=== PATIENT | female | born 1995 | race Two or more races ===

== ENCOUNTER 2020-07-02 19:45 | Emergency (ER) | payer MEDICAID ==
[~2020-07-02] VITALS: Ht 165.1 cm; Wt 75.0 kg
--- NOTE | 2020-07-02 20:20 | ED.ADGEN ---
General Adult EDM: Chief Complaint: VAGINAL BLEEDING HPI: HPI: Patient is a 24-year-old G1, P0 at 6 weeks gestation who presents to the emergency room complaining of vaginal bleeding. She states that started 25 minutes prior to arrival. She also had some cramping. Cramping was left-sided and is now resolved. She did have some bleeding in the waiting room. She denies any urinary symptoms or vaginal discharge. She was diagnosed with Covid 10 days ago. She has not have any further symptoms of Covid. Review of Systems: Review of Systems: Complete ROS is negative unless otherwise documented in HPI Allergies: Allergies: Allergies Coded Allergies Type Severity Reaction Last Updated Verified No Known Drug Allergies 07/02/20 No Physical Exam: PE: General: Awake, alert, NAD. Well Nourished, well hydrated. Cooperative HEENT: Atraumatic, EOMI, PERRL, airway patent, moist oral mucosa Neck: Supple, trachea midline Respiratory: CTA bilaterally, normal effort, no wheezing/crackles CV: RRR, no murmur, cap refill <2 GI: Soft, nondistended, nontender, no masses MSK: No obvious deformities Skin: Warm, dry, intact Neuro: A&O x3, speech NL, sensory and motor grossly intact, no focal deficits Psych: Normal affect, normal mood, not suicidal or homicidal Current Patient Data: Labs: Laboratory Tests Test 07/02/20 20:18 Maternal Serum HCG Beta Subunit 3855 mIU/mL (0-5) H Vital Signs: Vital Signs Date Time Temp Pulse Resp B/P (MAP) Pulse Ox O2 Delivery O2 Flow Rate FiO2 07/02/20 21:00 98 20 108/57 (74) 100 Room Air 07/02/20 20:21 98.4 98.4 EKG: EKG: [] Heart Score: Risk Factors: Risk Factors: DM, Current or recent (<one month) smoker, HTN, HLP, family history of CAD, obesity. Risk Scores: Score 0 - 3: 2.5% MACE over next 6 weeks - Discharge Home Score 4 - 6: 20.3% MACE over next 6 weeks - Admit for Clinical Observation Score 7 - 10: 72.7% MACE over next 6 weeks - Early Invasive Strategies Radiology/Procedures: Radiology/Procedures: [] Course & Med Decision Making: Course & Med Decision Making Pertinent Labs and Imaging studies reviewed. (See chart for details) Patient is 24-year-old G1, P0 at 6 weeks gestation who presents to the emergency room complaining of cramping and vaginal bleeding. Urine test, beta hCG, ultrasound, type and screen were ordered. Patient does not need RhoGam. Ultrasound shows what is likely a miscarriage. I have discussed with her that she needs repeat hormones on Sunday to ensure that this is not an ectopic pregn sanchez. Patient's test results and vitals while in the ED were fully reviewed and discussed with the patient. Patient is stable and at this time does not need admission to the hospital. We have discussed strict return precautions and the importance of following up with their Primary Care Physician. Patient stated understanding and was given an opportunity to ask any questions. Patient is in agreement with plan. Ana Disclaimer: Ana Disclaimer: This electronic medical record was generated, in whole or in part, using a voice recognition dictation system. Departure Departure Impression: Primary Impression: Spontaneous Disposition: DC HOME SELF CARE/HOMELESS Condition: STABLE Patient Instructions: Incomplete Miscarriage, Miscarriage Additional Instructions: Please follow up on Sunday for repeat hormone levels. JENNIFER MARIN MD Jul 02, 2020 20:20
--- NOTE | 2020-07-02 22:54 | RAD ---
OB ultrasound less than 14 weeks: HISTORY: Vaginal bleeding with heavy clots Sonographic examination of the appearance was performed by transabdominal technique and multiple stat ic images were obtained. The endometrial the uterus is thickened and measures 2.2 centers in thickness. There is a pocket of f luid in the cervix that measures 2.5 x 1.5 cm. There is no yolk sac or pole identified. The ovaries appear normal with normal blood flow. IMPRESSION: 1. No intrauterine identified. An early or blighted ovum or miscarriage is possib le. Recommend correlation with serial beta hCG. 2. There is a fluid collection within the cervix which is of uncertain significance but could be an i mpending miscarriage. If the continues a short-term follow-up ultrasound is necessary once the patient is 6 weeks to document an intrauterine . Electronically signed by: Ish Jesus III, MD (07/02/2020 10:48 PM) [facility]
[2020-07-02 23:30] VITALS: BP 127/78
== END 2020-07-02 23:32 | disposition home or self-care (01) ==
LOC: ER 19:45
DX: O03.9 Complete or unspecified spontaneous abortion without complication (principal); Z3A.01 Less than 8 weeks gestation of pregnancy
CPT/HCPCS: 36415; 76801; 84702; 86850; 86900; 86901; 99284